=== PATIENT | male | born 1940 | race Caucasian/White ===

== ENCOUNTER → 2023-05-26 08:13 | Outpatient (REF) | payer MEDICARE, OTHER, SELFPAY ==
[2023-05-26 09:38] LABS: % Basophils 0.7 % (0-2); % Eosinophils 5.8 % (0-6); % Immature Granulocytes 0.6 % (0-0.5); % Lymphocytes 25.6 % (20.5-51.1); % Monocytes 8.1 % (1.7-9.3); % Neutrophils 59.2 % (42.2-75.2); Absolute Basophils 0.1 10^3/uL (0-0.2); Absolute Eosinophils 0.5 10^3/uL (0-0.7); Absolute Immature Granulocytes 0.1 10^3/uL (0-0.05); Absolute Lymphocytes 2.2 10^3/uL (1.2-3.4); Absolute Monocytes 0.7 10^3/uL (0.1-0.6); Absolute Neutrophils 5.1 10^3/uL (1.4-6.5); Hematocrit 42.5 % (39.0-52.0); Hemoglobin 14.2 g/dL (13.0-18.0); Mean Corp Hgb Conc. 33.4 g/dL (33.0-37.0); Mean Corpuscular Volume 86.7 fL (80.0-94.0); Mean Platelet Volume 11.1 fL (7.4-10.4); Nucleated Red Blood Cells % 0 % (-); Platelet Count 163 10^3/uL (130-400); Red Cell Dist. Width 13.9 % (11.5-14.5); White Blood Cell Count 8.6 10^3/uL (4.8-10.8)
[2023-05-26 09:54] LABS: ALT (SGPT) 21 U/L (0-50); AST (SGOT) 29 U/L (17-59); Albumin 3.9 g/dl (3.5-5.0); Alkaline Phosphatase 66 U/L (38-126); Blood Urea Nitrogen 19 mg/dl (9-20); Calcium 9.1 mg/dl (8.4-10.2); Carbon Dioxide 31 mmol/L (22-30); Chloride 104 mmol/L (98-107); Glucose 101 mg/dl (70-99); Potassium 4.5 mmol/L (3.5-5.1); Sodium 136 mmol/L (135-145); Total Protein 6.7 g/dl (6.3-8.2); Uric Acid 5.4 mg/dl (3.5-8.5); eGFR > 60.00
== END ==
LOC: HWLAB 08:13
PROVIDERS: ATTENDING PHYSICIAN Internal Medicine Rheumatology; FAMILY PHYSICIAN Family Medicine
DX: M10.9 Gout, unspecified (principal)
CPT/HCPCS: 36415; 80053; 84550; 85025

== ENCOUNTER → 2023-09-12 11:22 | Outpatient (REF) | payer MEDICARE, OTHER, SELFPAY ==
[2023-09-12 15:00] LABS: Free T4 0.89 ng/dl (0.78-2.19)
[2023-09-12 15:13] LABS: TSH 3.17 uIU/ml (0.47-4.68)
[2023-09-14 15:38] LABS: Thyroglobulin Antibodies <0.9 IU/mL (0.0-4.0); Thyroid Peroxidase Ab (TPO) 1.3 IU/mL (0.0-9.0)
== END ==
LOC: HWLAB 11:22
PROVIDERS: ATTENDING PHYSICIAN Internal Medicine Endocrinology, Diabetes & Metabolism; FAMILY PHYSICIAN Family Medicine
DX: E03.9 Hypothyroidism, unspecified (principal)
CPT/HCPCS: 36415; 84439; 84443; 86376; 86800

== ENCOUNTER → 2023-10-24 08:37 | Outpatient (REF) | payer MEDICARE, OTHER, SELFPAY ==
[2023-10-24 12:53] LABS: % Basophils 0.6 % (0-2); % Eosinophils 3.4 % (0-6); % Immature Granulocytes 0.7 % (0-0.5); % Lymphocytes 21.2 % (20.5-51.1); % Monocytes 8.1 % (1.7-9.3); Absolute Basophils 0.1 10^3/uL (0-0.2); Absolute Eosinophils 0.3 10^3/uL (0-0.7); Absolute Immature Granulocytes 0.1 10^3/uL (0-0.05); Absolute Lymphocytes 1.9 10^3/uL (1.2-3.4); Absolute Monocytes 0.7 10^3/uL (0.1-0.6); Absolute Neutrophils 5.8 10^3/uL (1.4-6.5); Hematocrit 38.6 % (39.0-52.0); Hemoglobin 13.2 g/dL (13.0-18.0); Mean Corp Hgb Conc. 34.2 g/dL (33.0-37.0); Mean Corpuscular Volume 87.7 fL (80.0-94.0); Mean Platelet Volume 12.2 fL (7.4-10.4); Nucleated Red Blood Cells % 0 % (-); Platelet Count 134 10^3/uL (130-400); Red Cell Dist. Width 13.8 % (11.5-14.5); White Blood Cell Count 8.8 10^3/uL (4.8-10.8)
[2023-10-24 13:01] LABS: ALT (SGPT) 18 U/L (0-50); AST (SGOT) 25 U/L (17-59); Albumin 3.9 g/dl (3.5-5.0); Alkaline Phosphatase 62 U/L (38-126); Blood Urea Nitrogen 24 mg/dl (9-20); Calcium 9.1 mg/dl (8.4-10.2); Carbon Dioxide 28 mmol/L (22-30); Chloride 105 mmol/L (98-107); Glucose 99 mg/dl (70-99); Potassium 4.4 mmol/L (3.5-5.1); Sodium 138 mmol/L (135-145); Total Protein 6.4 g/dl (6.3-8.2); Uric Acid 4.6 mg/dl (3.5-8.5); eGFR > 60.00
== END ==
LOC: HWLAB 08:37
PROVIDERS: ATTENDING PHYSICIAN Internal Medicine Rheumatology; FAMILY PHYSICIAN Family Medicine; REFERRING PHYSICIAN Urology
DX: M10.9 Gout, unspecified (principal); C61 Malignant neoplasm of prostate; N40.1 Benign prostatic hyperplasia with lower urinary tract symptoms; R35.1 Nocturia
CPT/HCPCS: 36415; 80053; 84153; 84403; 84550; 85025

== ENCOUNTER 2023-11-03 13:14 | Emergency (ER) | payer MEDICARE, OTHER, SELFPAY ==
[2023-11-03 13:16] VITALS: BP 125/79
--- NOTE | 2023-11-03 14:22 | ED.GENMED ---
History of Present Illness
General
Chief Complaint: Fall
Source: patient
Exam Limitations: none
Time Seen by Provider: 11/03/23 14:10
History of Present Illness
History of Present Illness:
83-year-old male on a baby aspirin a history of asthma presents complaining of increased swelling to the right lower leg. He fell 2 weeks ago onto his knee and went to an urgent care x-rays were taken. These were negative for bony injury and was
told he had an effusion. He recheck with them today and he has increased swelling in the leg. They sent him in here for ultrasound of his leg to evaluate for DVT. He denies any new shortness of breath. He denies any chest pain. No prior history
of congestive heart failure. He recently did see his excel developer and had an echocardiogram last month. He states everything was normal. No fevers. No other at this time
Phy Exam
Physical Exam
Physical Exam:
General: Well-appearing male no acute respiratory distress
HEENT: Normocephalic atraumatic neck is supple
Heart: Regular no murmurs
Lungs: Clear no wheeze
Extremities: Pitting edema right lower extremity greater than the left.
Skin: No erythema or tenderness noted to the right leg
Course
Orders/Labs/Results
Orders:
Orders
11/03/23 14:17
Venous Doppler Lwr Ext Rt [US Periph Venous LOWER Ext RT] Urgent
Comment:
Reason For Exam: swelling
Vital Signs
Initial and Last Documented VS:
Initial Vital Signs
Temp Pulse Resp BP Pulse Ox
98.5 F 60 18 125/79 96
11/03/23 13:16 11/03/23 13:16 11/03/23 13:16 11/03/23 13:16 11/03/23 13:16
Last Documented Vital Signs
Temp Pulse Resp BP Pulse Ox
98.5 F 60 20 125/79 96
11/03/23 13:16 11/03/23 13:16 11/03/23 14:15 11/03/23 13:16 11/03/23 13:16
MDM/Problems Addressed
Differential Diagnosis Includes:
Swelling to the leg. Consider DVT versus underlying hematoma versus dependent edema
Patient sent in here by urgent care to evaluate for DVT. Ultrasound is pending. Offered blood work to check heart function for CHF however patient declined.
*Critical Care Note
Total Time (30-74mins, 75-104mins- exclusive of procedures): Not Applicable
Update Note
Update Note:
Venous ultrasound negative for DVT. Patient reassured. Suspect settling hematoma or other systemic process however blood work was declined. Recommend follow-up with family doctor.
ED Attending Note
-
Portions of this chart may have been created with voice recognition software.� Occasional wrong word or��sound alike� substitutions may have occurred due to the inherent limitations of voice recognition software.
Discharge Plan
Departure
Patient Disposition: Home (Routine Discharge)
Date of Disposition: 11/03/23
Time of Disposition: 16:14
Patient with high blood pressure during this ER visit?: No
Discharge Problem:
Leg swelling
Referrals:
Rinku Kelley MD [Family Provider] -
Activity Restrictions/Additional Instructions:
Elevate leg for swelling. When not elevating continue to try to ambulate and walk. Return if worse otherwise follow-up with your family doctor
Interventions
Interventions:
*Risk Screen - Suicide Last Done: 11/03/23 13:16
*General Assessment Last Done: 11/03/23 13:16
*Neglect/Abuse Screening Last Done: 11/03/23 13:16
ED- Fall Risk Assessment Last Done: 11/03/23 14:15
*ED COVID-19 Vaccine History Last Done: 11/03/23 13:16
ED-Musculoskeletal Assessment Last Done: 11/03/23 14:15
ED- Neurological Assessment Last Done: 11/03/23 14:15
ED-Skin Assessment Last Done: 11/03/23 14:15
Discharge Date and Time
Print Language: [place]
== END 2023-11-03 16:27 | disposition home or self-care (01) ==
LOC: EMR 13:14
PROVIDERS: EMERGENCY PHYSICIAN Emergency Medicine; FAMILY PHYSICIAN Family Medicine
DX: R60.0 Localized edema (principal); J45.909 Unspecified asthma, uncomplicated; Z91.81 History of falling
CPT/HCPCS: 99284; 93971